=== PATIENT | male | born 1980 | race Caucasian/White ===

== ENCOUNTER 2020-02-17 07:40 | Emergency (ER) | payer SELFPAY ==
[2020-02-17 07:45] VITALS: BP 156/81
--- NOTE | 2020-02-17 08:33 | ER Document Report ---
ED General - General Stated Complaint: MEDICATION REFILL Time Seen by Provider: 02/17/20 08:19 - HPI Notes: Chief complaint: Request for medication refill History of present illness: 39-year-old male presents requesting refill on his gabapentin. 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 He is gone on to develop chronic pain related to this and has recently been treated with gabapentin 300 mg 2 capsules 3 times daily. He was being treated by primary care provider in the state of [place]. He has recently relocated here because of his job and currently does not have a primary care provider. Patient is on no other regular medications at this time. He works for a [employer]. Allergy to Keflex. Non-smoker. No use of alcohol. - Related Data Allergies/Adverse Reactions: cephalexin [From K[employer]] Allergy (Verified 02/17/20 08:28) Home Medications: Gabapentin 600 mg TID Past Medical History - General Information source: Patient - Social History Smoking Status: Never Smoker Chew tobacco use (# tins/day): No Frequency of alcohol use: None Drug Abuse: None Family History: Reviewed & Not Pertinent Past Surgical History: Reports: Hx Orthopedic Surgery Review of Systems - Review of Systems Notes: Constitutional: Negative for fever. HENT: Negative for sore throat. Eyes: Negative for visual changes. Cardiovascular: Negative for chest pain. Respiratory: Negative for shortness of breath. Gastrointestinal: Negative for abdominal pain, vomiting or diarrhea. Genitourinary: Negative for dysuria. Musculoskeletal: As per HPI. Skin: Negative for rash. Neurological: As per HPI. 10 point ROS negative except as marked above and in HPI. Physical Exam - Vital signs Vitals: Temp Pulse Resp BP Pulse Ox 98.6 F 81 18 156/81 H 97 02/17/20 07:44 02/17/20 07:44 02/17/20 07:44 02/17/20 07:44 02/17/20 07:44 - Notes Notes: GENERAL: Somewhat obese male approximately stated age appearing in no acute distress. SKIN: Good turgor no rashes. HEAD: Normocephalic atraumatic. EYES: PERRLA. EOMI. Conjunctivae and sclerae clear. NECK: Supple. No masses or thyromegaly. No adenopathy. Carotids 2+ without bruits. No JVD. BACK: Symmetrical without tenderness. CHEST: Respirations unlabored. Breath sounds clear and symmetrical. HEART: Regular rhythm. No murmur gallop or rub. ABDOMEN: Soft nontender without masses, organomegaly or rebound. Bowel sounds normally active. No bruits. EXTREMITIES: Surgical scars of both feet. No edema. No calf tenderness. Cap refill less than 1.5 seconds. Dorsalis pedis and posterior tibial pulses 3+ and symmetrical. NEUROLOGICAL: Alert and oriented x3. Nonfocal. PSYCHIATRIC: Appropriate affect. Course - Vital Signs Vital signs: Temp Pulse Resp BP Pulse Ox 98.6 F 81 18 156/81 H 97 02/17/20 07:44 02/17/20 07:44 02/17/20 07:44 02/17/20 07:44 02/17/20 07:44 Discharge - Discharge Clinical Impression: Encounter for medication refill Condition: Stable Disposition: HOME, SELF-CARE Prescriptions: Gabapentin [Neurontin 300 mg Capsule] 600 mg PO Q8 #150 cap Referrals: [facility] [Provider Group] - Follow up as needed
== END 2020-02-17 08:37 | disposition home or self-care (01) ==
LOC: ER 07:40
DX: Z76.0 Encounter for issue of repeat prescription (principal); G89.29 Other chronic pain; E66.9 Obesity, unspecified; Z98.890 Other specified postprocedural states; Z88.1 Allergy status to other antibiotic agents
CPT/HCPCS: 99281

== ENCOUNTER 2020-04-16 10:05 | Emergency (ER) | payer BC ==
[2020-04-16 10:15] VITALS: BP 138/87
--- NOTE | 2020-04-16 12:35 | ER Document Report ---
HPI - HPI Patient complains to provider of: med refill Time Seen by Provider: 04/16/20 12:27 Context: Patient presents requesting refill of his gabapentin. Patient recently relocated to the area and has not established with a primary doctor. 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 Patient states pain is typical pain is constant with. Patient denies any recent injury. Patient denies any recent illness. Patient denies any other concerns today. Associated Symptoms: denies: Fever Exacerbated by: Movement Relieved by: Denies Similar symptoms previously: Yes Recently seen / treated by doctor: No - ROS ROS below otherwise negative: Yes Systems Reviewed and Negative: Yes All other systems reviewed and negative - CONSTITUTIONAL Constitutional: DENIES: Fever, Chills - MUSCULOSKELETAL Musculoskeletal: REPORTS: Extremity pain. DENIES: Swelling - DERM Skin Color: Normal Skin Problems: None Past Medical History - General Information source: Patient - Social History Smoking Status: Current Every Day Smoker Frequency of alcohol use: None Drug Abuse: None Occupation: None Lives with: Family Family History: Reviewed & Not Pertinent - Medical History Medical History: Other - Neuropathy Past Surgical History: Reports: Hx Orthopedic Surgery Vertical Provider Document - CONSTITUTIONAL Agree With Documented VS: Yes Exam Limitations: No Limitations General Appearance: WD/WN, No Apparent Distress Notes: PHYSICAL EXAMINATION: GENERAL: Well-appearing and in no acute distress. HEAD: Atraumatic, normocephalic. EYES: sclera anicteric, conjunctiva are normal. ENT: nares patent. Moist mucous membranes. NECK: Normal range of motion, supple LUNGS: CTAB and equal. No wheezes rales or rhonchi. HEART: Regular rate and rhythm without murmurs EXTREMITIES: Normal range of motion, No cyanosis. NEUROLOGICAL: Cranial nerves grossly intact. Normal speech. Normal gait. PSYCH: Normal mood, normal affect. SKIN: Warm, Dry, normal turgor, no rashes or lesions noted Course - Re-evaluation Re-evalutation: 04/16/20 12:36 Patient encouraged to follow-up with a primary care provider for any additional refills of his medication. Patient provided with a list of several doctors. Patient otherwise stable for discharge at this time. - Vital Signs Vital signs: Temp Pulse Resp BP Pulse Ox 98.1 F 90 18 138/87 H 96 04/16/20 10:13 04/16/20 10:13 04/16/20 10:13 04/16/20 10:13 04/16/20 10:13 - Laboratory Results Critical Laboratory Results Reviewed: No Critical Results - Radiology Results Critical Radiology Results Reviewed: No Critical Results Discharge - Discharge Clinical Impression: Medication refill, History of neuropathy Condition: Stable Disposition: HOME, SELF-CARE Additional Instructions: Return immediately for any new or worsening symptoms Followup with a primary care provider, call tomorrow to make a followup appointment Prescriptions: Gabapentin 600 mg PO TID #150 tablet [facility]errals: [facility] [Provider Group] - Follow up as needed [facility] [Provider Group] - Follow up as needed KACI ARROYO MD [ACTIVE STAFF] - Follow up as needed PHILIPP WINKLER MD [ACTIVE STAFF] - Follow up as needed [facility] [Provider Group] - Follow up as needed
== END 2020-04-16 12:44 | disposition home or self-care (01) ==
LOC: ER 10:05
DX: Z76.0 Encounter for issue of repeat prescription (principal); G62.9 Polyneuropathy, unspecified; F17.200 Nicotine dependence, unspecified, uncomplicated
CPT/HCPCS: 99283

== ENCOUNTER 2020-04-17 17:15 | Emergency (ER) | payer BC ==
[2020-04-17 17:43] VITALS: BP 141/76
[2020-04-17] MEDS ORDERED: DIPH/PERTUSS(ACELL)/TETANUS VAC/PF 0.5 ML SYR (>=10YO) IM ONE (18:10)
[2020-04-17] MEDS ORDERED: AMOXICILLIN TR/POT CLAVULANATE 875-125 MG TAB PO ONE (18:10)
--- NOTE | 2020-04-17 18:21 | ER Document Report ---
ED Animal Bite - General Chief Complaint: Cat Bite Stated Complaint: CAT BITE Time Seen by Provider: 04/17/20 18:09 - HPI Notes: Chief Complaint: Cat bite left hand Historian: History obtained from patient HPI: This is a 39-year-old male presents to the ER complaint of a cat bite to the left hand patient has a was a stray cat in his neighborhood that he was trying to trap at animal [employer]'s behest. Patient looks morning with increased redness and swelling to hand. Unsure of last tetanus shot. Patient will contact animal control to have them quarantine/monitor animal for any signs or symptoms of rabies. Patient denies fever chills nausea vomiting. ROS: Constitutional: no fevers. HEENT: no ARNETT, sore throat, or vision changes. CV: no chest pain or palpitations. Resp: no cough or SOB. GI: no abdominal pain, or n/v/d. : no dysuria, hematuria, or incont. MSK: left hand redness, swelling Skin: no rashes or itching. Neuro: no seizures, weakness, numbness, or confusion. Hematological: no ecchymosis or easy bleeding. Endocrine: no polyuria/polydipsia, no heat/cold intolerance. Psych: no SI/HI, AH/VH or memory loss. PMHx: Reviewed and agree as charted by RN. PSHx: Reviewed and agree as charted by RN. SOCHx: Reviewed and agree as charted by RN. FHX: No significant familial comorbid conditions directly related to patient complaint Current Medications: Reviewed and agree with the patient medications as charted by the RN. Allergies: Reviewed and agree with the listed allergies as charted by the RN Physical Exam: Vitals: Reviewed in chart as documented by RN. General: Alert and in NAD. Head: Normocephalic; atraumatic Eyes: PERRLA, Conjunctivae clear sclerae non-icteric bilat ENT: no soft palate swelling or uvular deviation Neck: trachea midline, no unilateral swelling/tenderness/lymphadenopathy CV: RRR, no M/R/G; symmetric distal pulses Resp: respirations even and unlabored, CTA bilat. GI: abd soft and nondistended. NTTP. normal BS. no masses/HSM. no CVAT bilat MSK: left hand- superfiical abrasion to dorsum of hand. 3cm area of erythema and swelling, mild tenderness. does not extend to digits or proximally to forearm. from of digits. no flexor tendon tenderness. no pain w/ passive extension Skin: warm, moist, good turgor. no rash/lesions Neuro: Alert and oriented X 4. following CN 2-12 intact. no unilateral weakness/numbness Psych: No SI/HI or AH/VH. ED Results: Medical Decision-Making: Medical Decision-making/Differential Diagnosis: Consider various etiologies including but not limited to skin/soft tissue structure infection, cellulitis, erysipelas, sepsis syndromes, focal abscess (low prob) , ect plan- will give pt tetanus shot and start him on augmentin. he declines to start rabies protocoll since he is able to find the cat in his neighborhood. Pt will call animal control to come and monitor animal. discussed return factors regarding signs of wornseing infection. no signs of abscess or flexor tenosynovitis at this time. - Related Data Allergies/Adverse Reactions: cephalexin [From [employer]] Allergy (Verified 04/17/20 18:07) Home Medications: gabapentin. clonidine. suboxone Past Medical History - Social History Smoking Status: Current Every Day Smoker Chew tobacco use (# tins/day): No Frequency of alcohol use: None Drug Abuse: None Family History: Reviewed & Not Pertinent Past Surgical History: Reports: Hx Orthopedic Surgery Physical Exam - Vital signs Vitals: Temp Pulse Resp BP Pulse Ox 98.5 F 92 16 141/76 H 98 04/17/20 17:42 04/17/20 17:42 04/17/20 17:42 04/17/20 17:42 04/17/20 17:42 Course - Vital Signs Vital signs: Temp Pulse Resp BP Pulse Ox 98.5 F 92 16 141/76 H 98 04/17/20 17:42 04/17/20 17:42 04/17/20 17:42 04/17/20 17:42 04/17/20 17:42 - Laboratory Results Critical Laboratory Results Reviewed: No Critical Results - Radiology Results Critical Radiology Results Reviewed: No Critical Results Discharge - Discharge Clinical Impression: Cat bite of left hand with infection Qualifiers: Encounter type: initial encounter Qualified Code(s): S61.452A - Open bite of left hand, initial encounter; L08.9 - Local infection of the skin and subcutaneous tissue, unspecified; W55.01XA - Bitten by cat, initial encounter Condition: Stable Disposition: HOME, SELF-CARE Instructions: Animal Bites ([facility]) Additional Instructions: keep wound clean and wash twice a day. complete entire course of antibiotics. return tothe ER if your condition worsens. call orthopedics to set up an appointment if theres concern for worsening infection as well. Prescriptions: Amoxicillin/Potassium Clav [Augmentin 875-125 Tablet] 1 tab PO BID #20 tablet
== END 2020-04-17 18:33 | disposition home or self-care (01) ==
LOC: ER 17:15
DX: S60.572A Other superficial bite of hand of left hand, initial encounter (principal); L08.9 Local infection of the skin and subcutaneous tissue, unspecified; W55.01XA Bitten by cat, initial encounter; Y93.89 Activity, other specified; F17.200 Nicotine dependence, unspecified, uncomplicated; Z23 Encounter for immunization; Z79.899 Other long term (current) drug therapy; Z88.1 Allergy status to other antibiotic agents
CPT/HCPCS: 99283; 90471; 90715; J3490

== ENCOUNTER 2020-05-10 18:55 | Emergency (ER) | payer BC ==
[2020-05-10 19:01] VITALS: BP 126/84
--- NOTE | 2020-05-10 19:16 | ER Document Report ---
HPI - HPI Patient complains to provider of: Sore throat Time Seen by Provider: 05/10/20 19:13 Context: 39-year-old male presents to the emergency room complaining of sudden onset of a sore throat earlier today. No fevers. No ill contacts. Eating and drinking normally. Also complains of some mild dizziness that is worse when moving his head that started the same time. Did not take any medications for symptoms. He has had no COVID-19 exposure. Associated Symptoms: None Exacerbated by: Denies Relieved by: Denies Similar symptoms previously: No Recently seen / treated by doctor: No - ROS Systems Reviewed and Negative: Yes All other systems reviewed and negative - CONSTITUTIONAL Constitutional: DENIES: Fever - EENT EENT: REPORTS: Sore Throat, Congestion - NEURO Neurology: REPORTS: Dizzinesss / Vertigo. 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 IN LAST 30 DAYS: No - HEENT HEENT: Atraumatic, Normocephalic, Pharyngeal Erythema. negative: Pharyngeal Exudate, Pharyngeal Tenderness, Tympanic Membrane Red, Tympanic Membrane Bulging Notes: Bilateral tympanic membranes are dull and retracted with clear fluid noted behind TM bilaterally. - NECK Neck: Normal Inspection, Supple. negative: Lymphadenopathy-Left, Lymphadenopathy-Right - RESPIRATORY Respiratory: Breath Sounds Normal, No Respiratory Distress - CARDIOVASCULAR Cardiovascular: No Murmur, Tachycardia - NEURO Level of Consciousness: Awake, Alert, Appropriate Motor/Sensory: No Motor Deficit, No Sensory Deficit - DERM Integumentary: Warm, Dry, No Rash Course - Re-evaluation Re-evalutation: 05/10/20 19:57 Patient is afebrile, nontoxic-appearing, tolerates p.o. fluids. Neurovascularly intact. Reviewed negative strep results with patient. Aware he will be notified if the throat culture comes back needing any additional treatment. Discussed the fluid in his ears could be contributing to his dizziness. Will prescribe a nasal spray. Counseled to encourage fluids. Follow-up with primary care physician if not improving in 2 to 3 days. Patient was given strict return to the emergency room guidelines. Return for any new or worsening symptoms. All questions were answered. Patient verbalized understanding and agrees with plan of care. 05/10/20 20:21 05/10/20 20:22 - Vital Signs Vital signs: Temp Pulse Resp BP Pulse Ox 98.4 F 101 H 17 126/84 H 95 05/10/20 18:59 05/10/20 18:59 05/10/20 18:59 05/10/20 18:59 05/10/20 18:59 - Laboratory Results Critical Laboratory Results Reviewed: No Critical Results - Radiology Results Critical Radiology Results Reviewed: No Critical Results Discharge - Discharge Clinical Impression: Dysfunction of both eustachian tubes Acute pharyngitis Qualifiers: Pharyngitis/tonsillitis etiology: unspecified etiology Qualified Code(s): J02.9 - Acute pharyngitis, unspecified Condition: Stable Disposition: HOME, SELF-CARE Instructions: Sore Throat ([facility]) Additional Instructions: Your strep test is negative. The fluid in your ears is contributing to your dizziness. Push fluids. Tylenol or Motrin for pain. Use nasal spray as prescribed. Follow-up with your primary care physician if not improving in 2 to 3 days. Return to the emergency room for any new or worsening symptoms. Prescriptions: Fluticasone Propionate [Flonase Nasal Hubbard 50 Mcg/Hubbard 16 gm] 2 sprays NASL DAILY 10 Days #1 inhaler
== END 2020-05-10 20:18 | disposition home or self-care (01) ==
LOC: ER 18:55
DX: J02.9 Acute pharyngitis, unspecified (principal); H83.8X3 Other specified diseases of inner ear, bilateral; R42 Dizziness and giddiness; R68.89 Other general symptoms and signs; F17.200 Nicotine dependence, unspecified, uncomplicated
CPT/HCPCS: 87070; 87880; 99283